=== PATIENT | male | born 1975 | race Hispanic/Latino ===

== ENCOUNTER 2022-04-06 11:40 | Emergency (ER) | payer SELFPAY ==
[2022-04-06] MEDS ORDERED: Boostrix 0.5 ML (Tdap) VIAL (>/=7 yrs of age) ONE (11:55)
[2022-04-06] MEDS ORDERED: Ketorolac Tromethamine 30 MG/ML VIAL ONE (12:07)
[2022-04-06 12:38] LABS: #Basophils 0.1 thou/uL (0.0-0.2); #Eosinphils 0.8 thou/uL (0.0-0.7); #Lymphocytes 1.8 thou/uL (1.20-3.40); #Monocytes 0.7 thou/uL (0.11-0.59); #Neutrophils 5.3 thou/uL (1.40-6.50); %Basophils 0.9 % (0.0-1.0); %Eosinophils 9.4 % (0.0-10.0); %Lymphocytes 21.1 % (21.0-51.0); %Monocytes 8.2 % (0.0-10.0); %Neutrophils 60.4 % (42.0-75.0); Hemoglobin 16.5 g/dL (14.0-18.0); Mean Corpuscular HGB CONC 34.4 g/dL (32.0-36.0); Mean Corpuscular Hemoglobin 32.4 pg (27.0-31.0); Mean Corpuscular Volume 94.3 fl (78.0-98.0); Mean Platelet Volume 8.6 fL (7.4-10.4); Platelet Count 293 10x3/uL (130-400); RBC Distribution Width 12.7 % (11.5-14.5); Red Blood Cell (RBC) Count 5.11 mill/uL (4.70-6.10); White Blood Cell (WBC) Count 8.7 10x3/uL (4.8-10.8)
[2022-04-06] MEDS ORDERED: CEFAZOLIN 2 GM VIAL ONE (12:43)
[2022-04-06 12:54] LABS: Prothrombin Time 13.5 sec (12.0-14.7)
[2022-04-06 12:57] LABS: Anion Gap 15 mmol/L (10-20); BUN (Urea Nitrogen) 15 mg/dL (8.9-20.6); Calc. Creatinine Clearance 0 mL/min (70-130); Calcium 9.8 mg/dL (7.8-10.44); Carbon Dioxide 24 mmol/L (22-29); Chloride 102 mmol/L (98-107); Estimated GFR 81; Glucose 100 mg/dL (70-105); Potassium 4.5 mmol/L (3.5-5.1); Sodium 136 mmol/L (136-145)
[2022-04-06] MEDS ORDERED: Bupivacaine 0.25% 10 ML VIAL ONE (14:01)
== END 2022-04-06 16:00 | disposition home or self-care (01) ==
LOC: ERS 11:40 → EDBD 11:40 → ERS 16:00
DX: S62.92XB Unspecified fracture of left hand, initial encounter for open fracture (principal); S62.395A Other fracture of fourth metacarpal bone, left hand, initial encounter for closed fracture; S62.397A Other fracture of fifth metacarpal bone, left hand, initial encounter for closed fracture; S66.124A Laceration of flexor muscle, fascia and tendon of right ring finger at wrist and hand level, initial encounter; W23.1XXA Caught, crushed, jammed, or pinched between stationary objects, initial encounter
CPT/HCPCS: 29125; 36415; 80048; 85025; 85610; 85730; 86850; 86900; 86901; 90471; 90715; 96374; 96375; J1885; S0020

== ENCOUNTER 2022-04-07 13:07 | Emergency (ER) | payer SELFPAY | END 2022-04-07 15:36 | disposition home or self-care (01) | LOC: ERS 13:07 | DX: S62.605B Fracture of unspecified phalanx of left ring finger, initial encounter for open fracture (principal); S62.607B Fracture of unspecified phalanx of left little finger, initial encounter for open fracture; F17.210 Nicotine dependence, cigarettes, uncomplicated; W22.8XXA Striking against or struck by other objects, initial encounter | CPT/HCPCS: 29125 ==

== ENCOUNTER 2022-04-10 14:02 | Emergency (ER) | payer SELFPAY ==
[2022-04-10] MEDS ORDERED: Bacitracin 1 PK ONE (18:55)
== END 2022-04-10 19:27 | disposition home or self-care (01) ==
LOC: ERS 14:02
DX: S62.605D Fracture of unspecified phalanx of left ring finger, subsequent encounter for fracture with routine healing (principal); S62.607D Fracture of unspecified phalanx of left little finger, subsequent encounter for fracture with routine healing; F17.210 Nicotine dependence, cigarettes, uncomplicated; W18.30XD Fall on same level, unspecified, subsequent encounter
CPT/HCPCS: 99283